=== PATIENT | male | born 1970 | race Caucasian/White ===

== ENCOUNTER 2018-09-19 06:56 | Emergency (ER) | payer OTHER ==
[~2018-09-19] VITALS: Ht 170.2 cm; Wt 86.6 kg
[2018-09-19 07:01] VITALS: Ht 170.2 cm; Wt 86.6 kg
[2018-09-19] MEDS ORDERED: SOD CHLORIDE 0.9% 1,000 ML IV STA ×2 (07:16→08:18)
[2018-09-19] MEDS ORDERED: ACETAMINOPHEN 500 MG TAB PO STA (07:16)
[2018-09-19] MEDS ORDERED: KETOROLAC 30 MG INJ IV STA (07:16)
--- NOTE | 2018-09-19 07:32 | ERD ---
ER Documentation Chief Complaint Chief Complaint Pt with c/o myalgia, fever, [place], and ST X 2-3 days. recent travel to [place] HPI 48-year-old male who presents to the emergency room with 2 to 3 days of symptoms. He describes mild fever, myalgia, sore throat and dry nonproductive cough. He also describes a gradual onset frontal mild throbbing headache. Symptoms started after returning from [facility], [place]. He was in [facility], [place] for approximately 2 days. He denies any nausea vomiting or diarrhea. No sick contacts. No exposures. No family sick contacts. The patient is vaccinated. He denies any abdominal pain or pain to the right lower quadrant. ROS All systems reviewed and are negative except as per history of present illness. Medications Home Meds Active Scripts Albuterol Sulfate* (Ventolin HFA*) 18 Gm Hfa.aer.ad, 2 PUFF INHALATION Q4H, #1 INHALER Prov:SARAH HILLIARD MD 09/19/18 Ibuprofen* (Motrin*) 800 Mg Tab, 800 MG PO Q6H PRN for PAIN AND OR ELEVATED TEMP, #30 TAB Prov:SARAH HILLIARD MD 09/19/18 Allergies Allergies: Coded Allergies: No Known Allergy (Unverified , 09/19/18) FmHx Family History: No diabetes Physical Exam Vitals Vital Signs Date Temp Pulse Resp B/P (MAP) Pulse Ox O2 O2 Flow FiO2 Time Delivery Rate 09/19/18 99.8 113 20 157/113 96 Room Air 08:00 (128) 09/19/18 101.8 146 22 159/91 96 07:01 (113) Physical Exam General: Well developed, well nourished, no acute distress Head: Normocephalic, atraumatic. Eyes: Pupils equally reactive, EOM intact ENT: Moist mucous membranes, posterior pharynx without swelling or exudates, uvula midline Neck: Supple, no lymphadenopathy Respiratory: Lungs clear bilaterally, no distress Cardiovascular: Tachycardia, no murmurs, rubs, or gallops Abdominal: Soft, non-tender, non-distended, no peritoneal signs : Deferred MSK: No edema, no unilateral swelling, 5/5 strength Neurologic: Alert and oriented, moving all extremities, normal speech, no focal weakness, no cerebellar signs, no meningismus Skin: No rash Psych: Normal mood Results 24 hrs Current Medications Medications Dose Sig/Farideh Start Time Status Last (Trade) Ordered Route PRN Stop Time Admin Dose Reason Admin Sodium 1,000 ml @ Q1H STAT 09/19/18 DC 09/19/18 Chloride 1,000 mls/hr IV 07:16 09/19/18 07:25 08:15 Ketorolac 30 mg ONCE STAT 09/19/18 DC 09/19/18 Tromethamine IV 07:16 09/19/18 07:24 (Toradol) 07:17 1,000 mg ONCE STAT 09/19/18 DC 09/19/18 Acetaminophen PO 07:16 09/19/18 07:23 (Tylenol 07:17 Tab) Sodium 1,000 ml @ Q1H STAT 09/19/18 09/19/18 Chloride 1,000 mls/hr IV 08:18 09/19/18 08:44 09:17 Procedures/MDM EKG, MONITORS, & DIAGNOSTIC IMAGING: Chest x-ray: I reviewed and interpreted a 1 view of the chest Mediastinum: No enlargement Cardiac silhouette: No cardiomegaly Airspace: Clear lung man bilaterally without evidence of pneumothorax Bones: No evidence of fracture MEDICAL DECISION MAKING: The patient's presentation is likely consistent with acute viral syndrome. The patient is describing sore throat, dry cough, myalgias and has a fever with tachycardia. The patient does have recent travel to [facility], [place] he has no signs or symptoms concerning for travelers related illness such as diarrhea. Patient has no exposure to insect bites and is vaccinated. This is not consistent with measles or acute encephalopathy. The patient is exquisitely well-appearing in the emergency room setting. Given the patient's fever and cough a chest x-ray would be reassuring to rule out pneumonia but no clinical signs or symptoms of this process and very low pretest probability. I do not believe laboratory testing or other diagnostic imaging is necessary given how well-appearing the patient is. Again this is most likely a viral process will benefit from several more days of symptom control with likely and expected resolution. The patient has no comorbidities that would lead to more complicated process. ER COURSE: * Patient given IV fluids, Tylenol, Toradol * Patient has defervesced since, heart rate improving. Symptoms improving. At this point the patient can be safely discharged with close primary care follow-up. * Chest x-ray normal CONSULTATION: None DISPOSITION PLAN: The patient does not have an identifiable emergent medical condition that war rants inpatient hospitalization at this time. The patient is deemed safe for discharge with outpatient follow-up. We discussed follow up with the patient's primary care doctor within 24 to 48 hours as needed. We also discussed return to the emergency room for worsening symptoms or worsening condition. Outpatient referral: None required Discharge Medications: Motrin, Ventolin Departure Diagnosis: Primary Impression: Viral URI Condition: Stable SARAH HILLIARD MD Sep 19, 2018 07:32
[2018-09-19] MEDS ORDERED: ALBU18HF INHALATION (07:48)
[2018-09-19] MEDS ORDERED: IBUP800T48 PO (07:48)
[2018-09-19 09:48] VITALS: BP 139/73; PULSE 99; RESP 16
== END 2018-09-19 09:57 | disposition home or self-care (01) ==
LOC: E/R 06:56
DX: J06.9 Acute upper respiratory infection, unspecified (principal)
CPT/HCPCS: 71045; 96374; J1885; J7030; Z7502; Z7610